=== PATIENT | male | born 1935 | race Caucasian/White ===

== ENCOUNTER 2021-05-29 14:52 | Inpatient (IN) ==
[2021-05-29 15:21] LABS: Basophils # 0.1 K/mcL (0.0-0.2); Basophils % 0.3 %; Eosinophils # 0.1 K/mcL (0.0-0.6); Eosinophils % 0.5 %; Hematocrit 51.4 % (37.5-50.1); Hemoglobin 16.9 g/dL (12.9-16.9); Immature Granulocytes % 0.5 % (0-4); Lymphocytes # 0.9 K/mcL (0.6-4.6); Mean Corpuscular HGB Conc 32.9 g/dL (31.6-35.5); Mean Corpuscular Hemoglobin 30.5 pg (28.0-33.3); Mean Corpuscular Volume 92.6 fL (83.0-100.0); Mean Platelet Volume 9.7 fL (9.4-12.4); Monocytes # 1.3 K/mcL (0.0-1.3); Monocytes % 8.6 %; Neutrophils # 12.9 K/mcL (1.6-8.9); Platelet Count 162 K/mcL (140-400); Red Blood Count 5.55 M/mcL (4.19-5.50); Segmented Neutrophils % 84.1 %; White Blood Count 15.3 K/mcL (4.3-11.1)
[2021-05-29 15:41] LABS: BUN/Creatinine Ratio 20 (6-26); Blood Urea Nitrogen 21 mg/dL (8-23); Calcium 8.6 mg/dL (8.6-10.3); Carbon Dioxide 24 mEq/L (23-29); Chloride 103 mEq/L (98-107); Glucose 133 mg/dL (70-105); Osmolality,Calculated 287 (280-300); Potassium 4.1 mEq/L (3.5-5.1); Sodium 136 mEq/L (136-145); eGFR For African Americans > 60 (> 60); eGFR For Non-African Americans > 60 (> 60)
[2021-05-29 15:46] LABS: Troponin I 0.23 ng/mL (< 0.04)
[2021-05-29 16:19] LABS: Adenovirus Not Detected (Not Detect); Coronavirus 229E Not Detected (Not Detect); Coronavirus HKU1 Not Detected (Not Detect); Coronavirus NL63 Not Detected (Not Detect); Coronavirus OC43 Not Detected (Not Detect)
[2021-05-29 16:21] LABS: Bordetella Pertussis Not Detected (Not Detect); Chlamydophila pneumoniae Not Detected (Not Detect); Human Metapneumovirus Not Detected (Not Detect); Human Rhinovirus/Enterovirus Not Detected (Not Detect); Influenza A Subtype 2009 H1 Not Detected (Not Detect); Influenza B Not Detected (Not Detect); Mycoplasma pneumoniae Not Detected (Not Detect); Parainfluenza Virus 1 Not Detected (Not Detect); Parainfluenza Virus 2 Not Detected (Not Detect); Parainfluenza Virus 3 Not Detected (Not Detect); Parainfluenza Virus 4 Not Detected (Not Detect); Respiratory Syncytial Virus Not Detected (Not Detect); SARS-CoV-2 DETECTED (Not Detect)
[2021-05-29] MEDS ORDERED: Ketorolac 30 MG/ML VIAL IVP STA (16:24)
[2021-05-29] MEDS ORDERED: Isovue-370 500 ML BOTTLE IVP ONE (16:24)
[2021-05-29] MEDS ORDERED: Isosorbide MONOnitrate (24 HR) 60 MG TAB.ER.24H PO SCH (17:15)
[2021-05-29] MEDS ORDERED: Metoprolol XL (24 HR) Succ 25 MG TAB.ER.24H PO SCH (17:15)
[2021-05-29] MEDS ORDERED: cefTRIAXone 1,000 MG in Water for inj. (sterile) 10 ML IVP ONE (18:22)
[2021-05-29] MEDS ORDERED: Azithromycin 250 MG TABLET PO ONE ×2 (18:22→18:35)
[2021-05-29] MEDS ORDERED: Aspirin 81 MG TAB.CHEW PO ONE (18:48)
[2021-05-29] MEDS ORDERED: Naloxone 0.4 MG/ML INJ IVP PRN (19:30)
[2021-05-29] MEDS: Isosorbide MONOnitrate (24 HR) 60 MG TAB.ER.24H PO SCH (19:55)
[2021-05-29] MEDS: Metoprolol XL (24 HR) Succ 25 MG TAB.ER.24H PO SCH (19:55)
[2021-05-29] MEDS ORDERED: Ipratropium 1 PUFF INHALER IH PRN (20:05)
[2021-05-29] MEDS ORDERED: Nitroglycerin 0.4 MG TAB.SUBL SL PRN (20:05)
[2021-05-29] MEDS ORDERED: *HR* Dextrose 50 % in Water (Syg) 50 ML SYRINGE IVP PRN (20:34)
[2021-05-29] MEDS ORDERED: D5% in Water 1,000 ML IVC PRN (20:34)
[2021-05-29] MEDS ORDERED: Dextrose Gel 15 GM/37.5 ML TUBE PO PRN ×2 (20:34)
[2021-05-29 22:09] LABS: Creatine Kinase 101 Units/L (30-223)
[2021-05-29] MEDS ORDERED: *HR* Heparin 5,000 UNIT/ML VIAL IVP PRN ×2 (23:28)
[2021-05-29] MEDS ORDERED: *HR* Heparin 5,000 UNIT/ML VIAL IVP ONE (23:28)
[2021-05-29] MEDS ORDERED: *HR* Metoprolol 5 MG/5 ML VIAL IVP ONE (23:49)
[2021-05-30] MEDS: Heparin 25,000UNIT/250ML 1/2NS 25,000 UNIT/250 ML IV.SOLN IVC SCH ×2 (00:40→23:18)
[2021-05-30 00:43] LABS: Hematocrit 48.5 % (37.5-50.1); Hemoglobin 15.7 g/dL (12.9-16.9); Mean Corpuscular HGB Conc 32.4 g/dL (31.6-35.5); Mean Corpuscular Hemoglobin 30.2 pg (28.0-33.3); Mean Corpuscular Volume 93.3 fL (83.0-100.0); Mean Platelet Volume 9.6 fL (9.4-12.4); Platelet Count 160 K/mcL (140-400); Red Cell Distribution Width 13.1 % (11.5-14.5); White Blood Count 13.7 K/mcL (4.3-11.1)
[2021-05-30 00:52] LABS: INR 1.2; Prothrombin Time 13.4 Seconds (9.4-12.1)
[2021-05-30 00:54] LABS: Heparin anti-factor XA UFH < 0.04 IU/mL (0.30-0.70)
[2021-05-30 01:05] LABS: Calcium 8.1 mg/dL (8.6-10.3); Potassium 3.9 mEq/L (3.5-5.1)
[2021-05-30] MEDS: Acetaminophen 325 MG TABLET PO PRN ×3 (03:01→20:52)
[2021-05-30] MEDS: Insulin LISPRO 300 UNITS/3 ML VIAL SUBQ SCH ×2 (08:26→15:20)
[2021-05-30] MEDS: Metoprolol XL (24 HR) Succ 25 MG TAB.ER.24H PO SCH ×2 (08:27→20:58)
[2021-05-30] MEDS: Isosorbide MONOnitrate (24 HR) 60 MG TAB.ER.24H PO SCH (08:27)
[2021-05-30] MEDS ORDERED: Azithromycin 500 MG in 0.9 % Sodium Chloride 250 ML IVPB SCH (09:00)
[2021-05-30] MEDS ORDERED: cefTRIAXone 1,000 MG in 0.9 % Sodium Chloride Mini Bag 100 ML IVPB SCH (09:00)
[2021-05-30] MEDS ORDERED: Metoprolol XL (24 HR) Succ 25 MG TAB.ER.24H PO SCH (09:00)
[2021-05-30] MEDS ORDERED: Isosorbide MONOnitrate (24 HR) 60 MG TAB.ER.24H PO SCH (09:00)
[2021-05-30] MEDS ORDERED: Perflutren Lipid Microsphere 1.3 ML in 0.9 % Sodium Chloride 8.7 ML IVP PRN (14:13)
[2021-05-30] MEDS ORDERED: predniSONE 5 MG TABLET PO PRN (17:24)
[2021-05-30] MEDS: *HR* LORazepam 0.5 MG TABLET PO SCH (20:52)
[2021-05-31 00:38] LABS: Basophils % 0.3 %; Eosinophils % 0.3 %; Hematocrit 46.2 % (37.5-50.1); Hemoglobin 14.9 g/dL (12.9-16.9); Immature Granulocytes % 0.4 % (0-4); Lymphocytes # 0.5 K/mcL (0.6-4.6); Lymphocytes % 4.4 %; Mean Corpuscular HGB Conc 32.3 g/dL (31.6-35.5); Mean Corpuscular Hemoglobin 29.9 pg (28.0-33.3); Mean Corpuscular Volume 92.6 fL (83.0-100.0); Mean Platelet Volume 9.5 fL (9.4-12.4); Monocytes # 0.4 K/mcL (0.0-1.3); Monocytes % 3.7 %; Neutrophils # 10.8 K/mcL (1.6-8.9); Platelet Count 169 K/mcL (140-400); Red Blood Count 4.99 M/mcL (4.19-5.50); Red Cell Distribution Width 13.1 % (11.5-14.5); Segmented Neutrophils % 90.9 %; White Blood Count 11.9 K/mcL (4.3-11.1)
[2021-05-31 00:53] LABS: BUN/Creatinine Ratio 23 (6-26); Blood Urea Nitrogen 25 mg/dL (8-23); Carbon Dioxide 26 mEq/L (23-29); Chloride 103 mEq/L (98-107); Glucose 125 mg/dL (70-105); Magnesium 1.7 mg/dL (1.6-2.6); Osmolality,Calculated 290 (280-300); Phosphorous 2.5 mg/dL (2.7-4.5); Sodium 137 mEq/L (136-145); eGFR For African Americans > 60 (> 60); eGFR For Non-African Americans > 60 (> 60)
[2021-05-31] MEDS: Tiotropium 10 INH DOSE IH SCH (08:36)
[2021-05-31] MEDS: Insulin LISPRO 300 UNITS/3 ML VIAL SUBQ SCH ×3 (08:40→18:00)
[2021-05-31] MEDS: levoFLOXacin 750 MG TABLET PO SCH (09:08)
[2021-05-31] MEDS: lisinopriL 5 MG TABLET PO SCH (09:08)
[2021-05-31] MEDS: Aspirin Enteric Coated 81 MG Tablet PO SCH (09:08)
[2021-05-31] MEDS: Isosorbide MONOnitrate (24 HR) 60 MG TAB.ER.24H PO SCH (09:08)
[2021-05-31] MEDS: Metoprolol XL (24 HR) Succ 25 MG TAB.ER.24H PO SCH ×2 (09:08→20:51)
[2021-05-31] MEDS ORDERED: Ondansetron 4 MG/2 ML VIAL IVP ONE ×2 (09:16→21:16)
[2021-05-31] MEDS: Acetaminophen 325 MG TABLET PO PRN ×2 (09:24→20:51)
[2021-05-31] MEDS: predniSONE 5 MG TABLET PO SCH (15:47)
[2021-05-31] MEDS: *HR* LORazepam 0.5 MG TABLET PO SCH (20:51)
[2021-05-31] MEDS: Ciprofloxacin/Dex *EAR* Susp 7.5 ML BOTTLE RIGHT EAR SCH (23:34)
[2021-06-01] MEDS: Heparin 25,000UNIT/250ML 1/2NS 25,000 UNIT/250 ML IV.SOLN IVC SCH (02:00)
[2021-06-01 06:31] LABS: Basophils % 0.3 %; Eosinophils % 0.2 %; Hematocrit 47.5 % (37.5-50.1); Hemoglobin 14.7 g/dL (12.9-16.9); Immature Granulocytes % 1.2 % (0-4); Lymphocytes # 0.8 K/mcL (0.6-4.6); Lymphocytes % 6.3 %; Mean Corpuscular HGB Conc 30.9 g/dL (31.6-35.5); Mean Corpuscular Hemoglobin 29.1 pg (28.0-33.3); Mean Corpuscular Volume 93.9 fL (83.0-100.0); Mean Platelet Volume 9.6 fL (9.4-12.4); Monocytes # 0.7 K/mcL (0.0-1.3); Neutrophils # 10.3 K/mcL (1.6-8.9); Platelet Count 194 K/mcL (140-400); Red Blood Count 5.06 M/mcL (4.19-5.50); Red Cell Distribution Width 13.2 % (11.5-14.5); White Blood Count 11.9 K/mcL (4.3-11.1)
[2021-06-01 06:48] LABS: BUN/Creatinine Ratio 24 (6-26); Blood Urea Nitrogen 30 mg/dL (8-23); Calcium 8.1 mg/dL (8.6-10.3); Carbon Dioxide 30 mEq/L (23-29); Chloride 101 mEq/L (98-107); Glucose 139 mg/dL (70-105); Osmolality,Calculated 290 (280-300); Phosphorous 2.9 mg/dL (2.7-4.5); Potassium 4.7 mEq/L (3.5-5.1); Sodium 136 mEq/L (136-145); eGFR For African Americans > 60 (> 60); eGFR For Non-African Americans 56 (> 60)
[2021-06-01] MEDS: Tiotropium 10 INH DOSE IH SCH (08:18)
[2021-06-01] MEDS: Aspirin Enteric Coated 81 MG Tablet PO SCH (08:27)
[2021-06-01] MEDS: Isosorbide MONOnitrate (24 HR) 60 MG TAB.ER.24H PO SCH (08:27)
[2021-06-01] MEDS: Metoprolol XL (24 HR) Succ 25 MG TAB.ER.24H PO SCH ×2 (08:27→22:38)
[2021-06-01] MEDS: lisinopriL 5 MG TABLET PO SCH (08:27)
[2021-06-01] MEDS: levoFLOXacin 750 MG TABLET PO SCH (08:27)
[2021-06-01] MEDS: predniSONE 5 MG TABLET PO SCH (08:27)
[2021-06-01] MEDS: Insulin LISPRO 300 UNITS/3 ML VIAL SUBQ SCH ×4 (08:30→22:39)
[2021-06-01] MEDS: Ciprofloxacin/Dex *EAR* Susp 7.5 ML BOTTLE RIGHT EAR SCH ×2 (08:31→22:38)
[2021-06-01] MEDS: Acetaminophen 325 MG TABLET PO PRN (22:37)
[2021-06-01] MEDS: *HR* LORazepam 0.5 MG TABLET PO SCH (22:38)
[2021-06-02 06:56] LABS: Hematocrit 46.9 % (37.5-50.1); Hemoglobin 14.8 g/dL (12.9-16.9); Mean Corpuscular HGB Conc 31.6 g/dL (31.6-35.5); Mean Corpuscular Hemoglobin 29.4 pg (28.0-33.3); Mean Corpuscular Volume 93.2 fL (83.0-100.0); Mean Platelet Volume 9.1 fL (9.4-12.4); Platelet Count 217 K/mcL (140-400); Red Blood Count 5.03 M/mcL (4.19-5.50); Red Cell Distribution Width 12.9 % (11.5-14.5); White Blood Count 10.9 K/mcL (4.3-11.1)
[2021-06-02 07:09] LABS: BUN/Creatinine Ratio 25 (6-26); Blood Urea Nitrogen 25 mg/dL (8-23); Calcium 8.2 mg/dL (8.6-10.3); Carbon Dioxide 31 mEq/L (23-29); Chloride 102 mEq/L (98-107); Glucose 184 mg/dL (70-105); Osmolality,Calculated 293 (280-300); Potassium 4.8 mEq/L (3.5-5.1); Sodium 137 mEq/L (136-145); eGFR For African Americans > 60 (> 60); eGFR For Non-African Americans > 60 (> 60)
[2021-06-02] MEDS: Aspirin Enteric Coated 81 MG Tablet PO SCH (08:18)
[2021-06-02] MEDS: lisinopriL 5 MG TABLET PO SCH (08:18)
[2021-06-02] MEDS: Isosorbide MONOnitrate (24 HR) 60 MG TAB.ER.24H PO SCH (08:19)
[2021-06-02] MEDS: Metoprolol XL (24 HR) Succ 25 MG TAB.ER.24H PO SCH ×2 (08:19→22:22)
[2021-06-02] MEDS: Doxycycline 100 MG CAPSULE PO SCH ×2 (08:19→22:22)
[2021-06-02] MEDS: levoFLOXacin 750 MG TABLET PO SCH (08:19)
[2021-06-02] MEDS: Ciprofloxacin/Dex *EAR* Susp 7.5 ML BOTTLE RIGHT EAR SCH ×2 (08:19→22:22)
[2021-06-02] MEDS: Insulin LISPRO 300 UNITS/3 ML VIAL SUBQ SCH ×3 (08:20→17:43)
[2021-06-02] MEDS: Tiotropium 10 INH DOSE IH SCH (11:50)
[2021-06-02] MEDS: *HR* LORazepam 0.5 MG TABLET PO SCH (22:22)
[2021-06-03 06:58] LABS: Basophils % 0.1 %; Hematocrit 46.9 % (37.5-50.1); Hemoglobin 15.2 g/dL (12.9-16.9); Immature Granulocytes % 0.6 % (0-4); Lymphocytes # 0.4 K/mcL (0.6-4.6); Lymphocytes % 2.6 %; Mean Corpuscular HGB Conc 32.4 g/dL (31.6-35.5); Mean Corpuscular Hemoglobin 30.1 pg (28.0-33.3); Mean Corpuscular Volume 92.9 fL (83.0-100.0); Mean Platelet Volume 9.2 fL (9.4-12.4); Monocytes # 1.1 K/mcL (0.0-1.3); Neutrophils # 14.4 K/mcL (1.6-8.9); Platelet Count 269 K/mcL (140-400); Red Blood Count 5.05 M/mcL (4.19-5.50); Red Cell Distribution Width 12.9 % (11.5-14.5); Segmented Neutrophils % 89.7 %; White Blood Count 16.1 K/mcL (4.3-11.1)
[2021-06-03 07:18] LABS: BUN/Creatinine Ratio 26 (6-26); Blood Urea Nitrogen 28 mg/dL (8-23); Calcium 8.3 mg/dL (8.6-10.3); Carbon Dioxide 32 mEq/L (23-29); Chloride 102 mEq/L (98-107); Glucose 170 mg/dL (70-105); Osmolality,Calculated 299 (280-300); Potassium 4.6 mEq/L (3.5-5.1); Sodium 140 mEq/L (136-145); eGFR For African Americans > 60 (> 60); eGFR For Non-African Americans > 60 (> 60)
[2021-06-03] MEDS: Tiotropium 10 INH DOSE IH SCH (07:41)
[2021-06-03] MEDS: Insulin LISPRO 300 UNITS/3 ML VIAL SUBQ SCH ×3 (08:58→17:23)
[2021-06-03] MEDS: lisinopriL 5 MG TABLET PO SCH (08:58)
[2021-06-03] MEDS: Aspirin Enteric Coated 81 MG Tablet PO SCH (08:59)
[2021-06-03] MEDS: Doxycycline 100 MG CAPSULE PO SCH (08:59)
[2021-06-03] MEDS: levoFLOXacin 750 MG TABLET PO SCH (08:59)
[2021-06-03] MEDS: Isosorbide MONOnitrate (24 HR) 60 MG TAB.ER.24H PO SCH (08:59)
[2021-06-03] MEDS: Metoprolol XL (24 HR) Succ 25 MG TAB.ER.24H PO SCH ×2 (08:59→20:39)
[2021-06-03] MEDS: Ciprofloxacin/Dex *EAR* Susp 7.5 ML BOTTLE RIGHT EAR SCH ×2 (09:05→23:57)
[2021-06-03] MEDS ORDERED: *HR* Metoprolol 5 MG/5 ML VIAL IVP ONE (09:40)
[2021-06-03] MEDS: *HR* LORazepam 0.5 MG TABLET PO SCH (20:39)
[2021-06-04] MEDS: Ciprofloxacin/Dex *EAR* Susp 7.5 ML BOTTLE RIGHT EAR SCH ×2 (03:15→22:08)
[2021-06-04] MEDS: *HR* Enoxaparin 40 MG/0.4 ML SYRINGE SQ SCH (06:02)
[2021-06-04] MEDS: Tiotropium 10 INH DOSE IH SCH (08:30)
[2021-06-04] MEDS: Insulin LISPRO 300 UNITS/3 ML VIAL SUBQ SCH ×3 (10:14→17:19)
[2021-06-04] MEDS: levoFLOXacin 750 MG TABLET PO SCH (10:20)
[2021-06-04] MEDS: Aspirin Enteric Coated 81 MG Tablet PO SCH (10:20)
[2021-06-04] MEDS: Isosorbide MONOnitrate (24 HR) 60 MG TAB.ER.24H PO SCH (10:21)
[2021-06-04] MEDS: lisinopriL 5 MG TABLET PO SCH (10:21)
[2021-06-04] MEDS: Metoprolol XL (24 HR) Succ 25 MG TAB.ER.24H PO SCH ×2 (10:21→22:08)
[2021-06-04] MEDS: *HR* LORazepam 0.5 MG TABLET PO SCH (22:08)
[2021-06-05] MEDS: *HR* Enoxaparin 40 MG/0.4 ML SYRINGE SQ SCH (06:19)
[2021-06-05] MEDS: Tiotropium 10 INH DOSE IH SCH (07:51)
[2021-06-05] MEDS: Ciprofloxacin/Dex *EAR* Susp 7.5 ML BOTTLE RIGHT EAR SCH ×2 (08:18→21:17)
[2021-06-05] MEDS: Metoprolol XL (24 HR) Succ 25 MG TAB.ER.24H PO SCH ×2 (08:19→21:13)
[2021-06-05] MEDS: Isosorbide MONOnitrate (24 HR) 60 MG TAB.ER.24H PO SCH (08:19)
[2021-06-05] MEDS: lisinopriL 5 MG TABLET PO SCH (08:19)
[2021-06-05] MEDS: Insulin LISPRO 300 UNITS/3 ML VIAL SUBQ SCH ×3 (08:19→16:18)
[2021-06-05] MEDS: Aspirin Enteric Coated 81 MG Tablet PO SCH (08:19)
[2021-06-05] MEDS: *HR* LORazepam 0.5 MG TABLET PO SCH (21:13)
[2021-06-06] MEDS: *HR* Enoxaparin 40 MG/0.4 ML SYRINGE SQ SCH (04:56)
[2021-06-06 07:39] LABS: Basophils # 0.1 K/mcL (0.0-0.2); Basophils % 0.3 %; Hematocrit 48.3 % (37.5-50.1); Hemoglobin 15.5 g/dL (12.9-16.9); Immature Granulocytes % 1.7 % (0-4); Lymphocytes # 0.4 K/mcL (0.6-4.6); Lymphocytes % 1.9 %; Mean Corpuscular HGB Conc 32.1 g/dL (31.6-35.5); Mean Corpuscular Hemoglobin 29.3 pg (28.0-33.3); Mean Corpuscular Volume 91.3 fL (83.0-100.0); Mean Platelet Volume 9.2 fL (9.4-12.4); Monocytes # 0.6 K/mcL (0.0-1.3); Monocytes % 2.6 %; Neutrophils # 21.7 K/mcL (1.6-8.9); Platelet Count 327 K/mcL (140-400); Red Blood Count 5.29 M/mcL (4.19-5.50); Red Cell Distribution Width 13.1 % (11.5-14.5); Segmented Neutrophils % 93.5 %; White Blood Count 23.2 K/mcL (4.3-11.1)
[2021-06-06] MEDS: Tiotropium 10 INH DOSE IH SCH (07:43)
[2021-06-06] MEDS: Isosorbide MONOnitrate (24 HR) 60 MG TAB.ER.24H PO SCH (07:50)
[2021-06-06] MEDS: Aspirin Enteric Coated 81 MG Tablet PO SCH (07:50)
[2021-06-06] MEDS: lisinopriL 5 MG TABLET PO SCH (07:51)
[2021-06-06] MEDS: Metoprolol XL (24 HR) Succ 25 MG TAB.ER.24H PO SCH ×2 (07:51→21:05)
[2021-06-06 07:57] LABS: BUN/Creatinine Ratio 26 (6-26); Blood Urea Nitrogen 27 mg/dL (8-23); Calcium 8.7 mg/dL (8.6-10.3); Carbon Dioxide 29 mEq/L (23-29); Chloride 96 mEq/L (98-107); Glucose 175 mg/dL (70-105); Osmolality,Calculated 287 (280-300); Potassium 4.3 mEq/L (3.5-5.1); Sodium 134 mEq/L (136-145); eGFR For African Americans > 60 (> 60); eGFR For Non-African Americans > 60 (> 60)
[2021-06-06] MEDS: Insulin LISPRO 300 UNITS/3 ML VIAL SUBQ SCH ×3 (07:57→16:26)
[2021-06-06] MEDS: Ciprofloxacin/Dex *EAR* Susp 7.5 ML BOTTLE RIGHT EAR SCH ×2 (07:59→21:05)
[2021-06-06 08:23] LABS: Platelet Estimate Normal (Normal); Toxic Granulation Present (Not Present)
[2021-06-06] MEDS: *HR* LORazepam 0.5 MG TABLET PO SCH (21:05)
[2021-06-07 04:46] LABS: Basophils # 0.1 K/mcL (0.0-0.2); Basophils % 0.4 %; Hematocrit 47.7 % (37.5-50.1); Hemoglobin 15.7 g/dL (12.9-16.9); Immature Granulocytes % 1.2 % (0-4); Lymphocytes # 0.5 K/mcL (0.6-4.6); Lymphocytes % 2.1 %; Mean Corpuscular HGB Conc 32.9 g/dL (31.6-35.5); Mean Platelet Volume 9.1 fL (9.4-12.4); Monocytes # 0.7 K/mcL (0.0-1.3); Monocytes % 3.2 %; Neutrophils # 20.3 K/mcL (1.6-8.9); Platelet Count 361 K/mcL (140-400); Red Blood Count 5.24 M/mcL (4.19-5.50); Red Cell Distribution Width 12.9 % (11.5-14.5); Segmented Neutrophils % 93.1 %; White Blood Count 21.8 K/mcL (4.3-11.1)
[2021-06-07 05:02] LABS: BUN/Creatinine Ratio 29 (6-26); Blood Urea Nitrogen 30 mg/dL (8-23); Calcium 8.5 mg/dL (8.6-10.3); Carbon Dioxide 31 mEq/L (23-29); Chloride 97 mEq/L (98-107); Glucose 206 mg/dL (70-105); Osmolality,Calculated 290 (280-300); Potassium 4.7 mEq/L (3.5-5.1); Sodium 134 mEq/L (136-145); eGFR For African Americans > 60 (> 60); eGFR For Non-African Americans > 60 (> 60)
[2021-06-07] MEDS: *HR* Enoxaparin 40 MG/0.4 ML SYRINGE SQ SCH (06:15)
[2021-06-07] MEDS: Isosorbide MONOnitrate (24 HR) 60 MG TAB.ER.24H PO SCH (08:25)
[2021-06-07] MEDS: Metoprolol XL (24 HR) Succ 25 MG TAB.ER.24H PO SCH ×2 (08:25→21:01)
[2021-06-07] MEDS: Aspirin Enteric Coated 81 MG Tablet PO SCH (08:25)
[2021-06-07] MEDS: Ciprofloxacin/Dex *EAR* Susp 7.5 ML BOTTLE RIGHT EAR SCH (08:26)
[2021-06-07] MEDS: lisinopriL 5 MG TABLET PO SCH (08:26)
[2021-06-07] MEDS: Insulin LISPRO 300 UNITS/3 ML VIAL SUBQ SCH ×5 (08:27→21:08)
[2021-06-07] MEDS: Tiotropium 10 INH DOSE IH SCH (08:33)
[2021-06-07] MEDS ORDERED: Isovue-370 500 ML BOTTLE IVP ONE (11:47)
[2021-06-07] MEDS ORDERED: 0.9 % Sodium Chloride 500 ML IVC SCH (12:00)
[2021-06-07] MEDS ORDERED: Dexamethasone Sodium Phos/PF 10 MG/ML VIAL IVP ONE (16:23)
[2021-06-07] MEDS: *HR* LORazepam 0.5 MG TABLET PO SCH (21:01)
[2021-06-08] MEDS: *HR* Enoxaparin 40 MG/0.4 ML SYRINGE SQ SCH (05:32)
[2021-06-08 05:43] LABS: Basophils % 0.2 %; Hematocrit 48.7 % (37.5-50.1); Hemoglobin 15.4 g/dL (12.9-16.9); Immature Granulocytes % 1.1 % (0-4); Lymphocytes # 0.3 K/mcL (0.6-4.6); Lymphocytes % 1.5 %; Mean Corpuscular HGB Conc 31.6 g/dL (31.6-35.5); Mean Corpuscular Hemoglobin 28.8 pg (28.0-33.3); Mean Corpuscular Volume 91.2 fL (83.0-100.0); Mean Platelet Volume 9.1 fL (9.4-12.4); Monocytes # 0.6 K/mcL (0.0-1.3); Monocytes % 3.2 %; Neutrophils # 18.4 K/mcL (1.6-8.9); Platelet Count 403 K/mcL (140-400); Red Blood Count 5.34 M/mcL (4.19-5.50); Red Cell Distribution Width 12.8 % (11.5-14.5); White Blood Count 19.6 K/mcL (4.3-11.1)
[2021-06-08 05:53] LABS: BUN/Creatinine Ratio 37 (6-26); Blood Urea Nitrogen 36 mg/dL (8-23); Calcium 8.4 mg/dL (8.6-10.3); Carbon Dioxide 29 mEq/L (23-29); Chloride 97 mEq/L (98-107); Glucose 246 mg/dL (70-105); Osmolality,Calculated 293 (280-300); Sodium 133 mEq/L (136-145); eGFR For African Americans > 60 (> 60); eGFR For Non-African Americans > 60 (> 60)
[2021-06-08] MEDS: Tiotropium 10 INH DOSE IH SCH (07:40)
[2021-06-08] MEDS: Dexamethasone Sodium Phos/PF 10 MG/ML VIAL IVP SCH (08:53)
[2021-06-08] MEDS: Metoprolol XL (24 HR) Succ 25 MG TAB.ER.24H PO SCH ×2 (08:54→20:39)
[2021-06-08] MEDS: Aspirin Enteric Coated 81 MG Tablet PO SCH (08:54)
[2021-06-08] MEDS: Isosorbide MONOnitrate (24 HR) 60 MG TAB.ER.24H PO SCH (08:54)
[2021-06-08] MEDS: lisinopriL 5 MG TABLET PO SCH (08:54)
[2021-06-08] MEDS: Insulin LISPRO 300 UNITS/3 ML VIAL SUBQ SCH ×4 (08:55→20:40)
[2021-06-08] MEDS: Sennosides/Docusate Sodium TABLET PO SCH (20:39)
[2021-06-08] MEDS: *HR* LORazepam 0.5 MG TABLET PO SCH (20:40)
[2021-06-09] MEDS: *HR* Enoxaparin 40 MG/0.4 ML SYRINGE SQ SCH (05:35)
[2021-06-09] MEDS: Tiotropium 10 INH DOSE IH SCH (08:20)
[2021-06-09] MEDS: Sennosides/Docusate Sodium TABLET PO SCH ×2 (09:19→20:34)
[2021-06-09] MEDS: Aspirin Enteric Coated 81 MG Tablet PO SCH (09:19)
[2021-06-09] MEDS: Metoprolol XL (24 HR) Succ 25 MG TAB.ER.24H PO SCH ×2 (09:19→20:34)
[2021-06-09] MEDS: Insulin LISPRO 300 UNITS/3 ML VIAL SUBQ SCH ×4 (09:19→20:35)
[2021-06-09] MEDS: Isosorbide MONOnitrate (24 HR) 60 MG TAB.ER.24H PO SCH (09:19)
[2021-06-09] MEDS: lisinopriL 5 MG TABLET PO SCH (09:19)
[2021-06-09] MEDS: Dexamethasone Sodium Phos/PF 10 MG/ML VIAL IVP SCH (09:20)
[2021-06-09] MEDS: *HR* LORazepam 0.5 MG TABLET PO SCH (20:34)
[2021-06-10] MEDS: *HR* Enoxaparin 40 MG/0.4 ML SYRINGE SQ SCH (04:52)
[2021-06-10] MEDS: Dexamethasone Sodium Phos/PF 10 MG/ML VIAL IVP SCH (07:59)
[2021-06-10] MEDS: lisinopriL 5 MG TABLET PO SCH (08:00)
[2021-06-10] MEDS: Aspirin Enteric Coated 81 MG Tablet PO SCH (08:00)
[2021-06-10] MEDS: Insulin LISPRO 300 UNITS/3 ML VIAL SUBQ SCH ×4 (08:00→21:25)
[2021-06-10] MEDS: Isosorbide MONOnitrate (24 HR) 60 MG TAB.ER.24H PO SCH (08:01)
[2021-06-10] MEDS: Metoprolol XL (24 HR) Succ 25 MG TAB.ER.24H PO SCH ×2 (08:01→21:25)
[2021-06-10] MEDS: Sennosides/Docusate Sodium TABLET PO SCH ×2 (08:01→21:25)
[2021-06-10] MEDS: Tiotropium 10 INH DOSE IH SCH (08:14)
[2021-06-10] MEDS ORDERED: Preparation H Ointment 57 GM TUBE RC PRN (18:45)
[2021-06-10] MEDS: *HR* LORazepam 0.5 MG TABLET PO SCH (21:24)
[2021-06-10] MEDS: Insulin DETEMIR 100 UNIT/ML X5UNITS SUBQ SCH (21:25)
[2021-06-11 01:53] LABS: Basophils # 0.1 K/mcL (0.0-0.2); Basophils % 0.2 %; Hematocrit 50.6 % (37.5-50.1); Hemoglobin 16.6 g/dL (12.9-16.9); Immature Granulocytes % 1.1 % (0-4); Lymphocytes # 0.4 K/mcL (0.6-4.6); Lymphocytes % 1.7 %; Mean Corpuscular HGB Conc 32.8 g/dL (31.6-35.5); Mean Corpuscular Hemoglobin 29.2 pg (28.0-33.3); Mean Corpuscular Volume 89.1 fL (83.0-100.0); Monocytes # 1.2 K/mcL (0.0-1.3); Monocytes % 5.7 %; Neutrophils # 19.2 K/mcL (1.6-8.9); Platelet Count 460 K/mcL (140-400); Red Blood Count 5.68 M/mcL (4.19-5.50); Red Cell Distribution Width 12.6 % (11.5-14.5); Segmented Neutrophils % 91.3 %
[2021-06-11 02:07] LABS: BUN/Creatinine Ratio 44 (6-26); Blood Urea Nitrogen 42 mg/dL (8-23); Calcium 8.3 mg/dL (8.6-10.3); Carbon Dioxide 25 mEq/L (23-29); Chloride 96 mEq/L (98-107); Glucose 230 mg/dL (70-105); Osmolality,Calculated 290 (280-300); Potassium 5.3 mEq/L (3.5-5.1); Sodium 131 mEq/L (136-145); eGFR For African Americans > 60 (> 60); eGFR For Non-African Americans > 60 (> 60)
[2021-06-11] MEDS: *HR* Enoxaparin 40 MG/0.4 ML SYRINGE SQ SCH (06:19)
[2021-06-11] MEDS: Tiotropium 10 INH DOSE IH SCH (07:40)
[2021-06-11] MEDS: lisinopriL 5 MG TABLET PO SCH (07:55)
[2021-06-11] MEDS: Metoprolol XL (24 HR) Succ 25 MG TAB.ER.24H PO SCH ×2 (07:55→20:10)
[2021-06-11] MEDS: Sennosides/Docusate Sodium TABLET PO SCH ×2 (07:55→20:10)
[2021-06-11] MEDS: Dexamethasone Sodium Phos/PF 10 MG/ML VIAL IVP SCH (07:55)
[2021-06-11] MEDS: Isosorbide MONOnitrate (24 HR) 60 MG TAB.ER.24H PO SCH (07:55)
[2021-06-11] MEDS: Aspirin Enteric Coated 81 MG Tablet PO SCH (07:55)
[2021-06-11] MEDS: Insulin LISPRO 300 UNITS/3 ML VIAL SUBQ SCH ×4 (07:56→23:29)
[2021-06-11] MEDS ORDERED: Furosemide 20 MG/2 ML VIAL IVP ONE (13:07)
[2021-06-11] MEDS ORDERED: Chloraseptic Spray 177 ML BOTTLE MM PRN (17:34)
[2021-06-11] MEDS: *HR* LORazepam 0.5 MG TABLET PO SCH (20:10)
[2021-06-11] MEDS: Insulin DETEMIR 100 UNIT/ML X5UNITS SUBQ SCH (23:29)
[2021-06-12] MEDS: *HR* Enoxaparin 40 MG/0.4 ML SYRINGE SQ SCH (05:15)
[2021-06-12 05:44] LABS: Basophils % 0.2 %; Hemoglobin 17.6 g/dL (12.9-16.9); Immature Granulocytes % 1.4 % (0-4); Lymphocytes # 0.5 K/mcL (0.6-4.6); Lymphocytes % 2.3 %; Mean Corpuscular HGB Conc 31.9 g/dL (31.6-35.5); Mean Corpuscular Hemoglobin 28.7 pg (28.0-33.3); Mean Corpuscular Volume 89.7 fL (83.0-100.0); Mean Platelet Volume 9.2 fL (9.4-12.4); Monocytes # 1.1 K/mcL (0.0-1.3); Monocytes % 5.6 %; Neutrophils # 17.9 K/mcL (1.6-8.9); Platelet Count 496 K/mcL (140-400); Red Blood Count 6.14 M/mcL (4.19-5.50); Red Cell Distribution Width 12.7 % (11.5-14.5); Segmented Neutrophils % 90.5 %; White Blood Count 19.7 K/mcL (4.3-11.1)
[2021-06-12 05:45] LABS: Hematocrit 55.1 % (37.5-50.1)
[2021-06-12 06:01] LABS: BUN/Creatinine Ratio 42 (6-26); Blood Urea Nitrogen 51 mg/dL (8-23); Calcium 8.5 mg/dL (8.6-10.3); Carbon Dioxide 29 mEq/L (23-29); Chloride 95 mEq/L (98-107); Glucose 191 mg/dL (70-105); Osmolality,Calculated 297 (280-300); Potassium 4.9 mEq/L (3.5-5.1); Sodium 134 mEq/L (136-145); eGFR For African Americans > 60 (> 60); eGFR For Non-African Americans 57 (> 60)
[2021-06-12] MEDS: Insulin LISPRO 300 UNITS/3 ML VIAL SUBQ SCH ×4 (08:25→21:38)
[2021-06-12] MEDS: Isosorbide MONOnitrate (24 HR) 60 MG TAB.ER.24H PO SCH (08:27)
[2021-06-12] MEDS: Metoprolol XL (24 HR) Succ 25 MG TAB.ER.24H PO SCH (08:27)
[2021-06-12] MEDS: Sennosides/Docusate Sodium TABLET PO SCH ×2 (08:27→21:29)
[2021-06-12] MEDS: Dexamethasone Sodium Phos/PF 10 MG/ML VIAL IVP SCH (08:28)
[2021-06-12] MEDS: lisinopriL 5 MG TABLET PO SCH (08:28)
[2021-06-12] MEDS: Aspirin Enteric Coated 81 MG Tablet PO SCH (08:28)
[2021-06-12] MEDS ORDERED: *HR* Metoprolol 5 MG/5 ML VIAL IVP PRN (08:53)
[2021-06-12] MEDS: Tiotropium 10 INH DOSE IH SCH (11:07)
[2021-06-12] MEDS ORDERED: Amiodarone Premix 150 MG/100 ML BAG IVPB ONE (14:04)
[2021-06-12] MEDS ORDERED: Amiodarone Premix 360 MG/200 ML BAG IVC ONE (14:13)
[2021-06-12] MEDS: Furosemide 40 MG/4 ML VIAL IVP SCH (18:02)
[2021-06-12] MEDS: *HR* Enoxaparin 80 MG/0.8 ML SYRINGE SQ SCH (18:03)
[2021-06-12] MEDS: *HR* LORazepam 0.5 MG TABLET PO SCH (21:26)
[2021-06-12] MEDS: Amiodarone Premix 360 MG/200 ML BAG IVC SCH (21:29)
[2021-06-12] MEDS: Insulin DETEMIR 100 UNIT/ML X5UNITS SUBQ SCH (21:41)
[2021-06-13] MEDS: *HR* Enoxaparin 80 MG/0.8 ML SYRINGE SQ SCH (05:44)
[2021-06-13 06:30] LABS: Basophils % 0.2 %; Eosinophils % 0.1 %; Hemoglobin 18.4 g/dL (12.9-16.9); Immature Granulocytes % 1.1 % (0-4); Lymphocytes # 0.5 K/mcL (0.6-4.6); Lymphocytes % 2.4 %; Mean Corpuscular HGB Conc 33.1 g/dL (31.6-35.5); Mean Corpuscular Hemoglobin 29.5 pg (28.0-33.3); Mean Corpuscular Volume 89.1 fL (83.0-100.0); Mean Platelet Volume 9.2 fL (9.4-12.4); Monocytes % 4.8 %; Neutrophils # 19.3 K/mcL (1.6-8.9); Platelet Count 528 K/mcL (140-400); Red Blood Count 6.24 M/mcL (4.19-5.50); Red Cell Distribution Width 12.8 % (11.5-14.5); Segmented Neutrophils % 91.4 %; White Blood Count 21.1 K/mcL (4.3-11.1)
[2021-06-13 06:32] LABS: Hematocrit 55.6 % (37.5-50.1)
[2021-06-13 06:43] LABS: BUN/Creatinine Ratio 47 (6-26); Blood Urea Nitrogen 62 mg/dL (8-23); Calcium 8.3 mg/dL (8.6-10.3); Carbon Dioxide 27 mEq/L (23-29); Chloride 96 mEq/L (98-107); Glucose 147 mg/dL (70-105); Osmolality,Calculated 294 (280-300); Potassium 4.9 mEq/L (3.5-5.1); Sodium 132 mEq/L (136-145); eGFR For African Americans > 60 (> 60); eGFR For Non-African Americans 51 (> 60)
[2021-06-13] MEDS: Amiodarone Premix 360 MG/200 ML BAG IVC SCH ×2 (07:53→19:51)
[2021-06-13] MEDS: Aspirin Enteric Coated 81 MG Tablet PO SCH (07:54)
[2021-06-13] MEDS: Furosemide 40 MG/4 ML VIAL IVP SCH (07:54)
[2021-06-13] MEDS: lisinopriL 5 MG TABLET PO SCH (07:54)
[2021-06-13] MEDS: Sennosides/Docusate Sodium TABLET PO SCH ×2 (07:54→20:06)
[2021-06-13] MEDS: Insulin LISPRO 300 UNITS/3 ML VIAL SUBQ SCH ×4 (07:54→20:07)
[2021-06-13] MEDS: Dexamethasone Sodium Phos/PF 10 MG/ML VIAL IVP SCH (07:54)
[2021-06-13] MEDS ORDERED: Isosorbide MONOnitrate (24 HR) 30 MG TAB.ER.24H PO SCH (09:00)
[2021-06-13] MEDS: Tiotropium 10 INH DOSE IH SCH (10:13)
[2021-06-13] MEDS ORDERED: Amiodarone Premix 150 MG/100 ML BAG IVPB ONE (12:08)
[2021-06-13] MEDS: *HR* Amiodarone 200 MG TABLET PO SCH ×2 (13:47→20:06)
[2021-06-13] MEDS ORDERED: *HR* LORazepam 0.5 MG TABLET PO PRN (17:07)
[2021-06-13] MEDS: *HR* Enoxaparin 100 MG/ML SYRINGE SQ SCH (17:23)
[2021-06-13] MEDS: Metoprolol 100 MG TABLET PO SCH (20:06)
[2021-06-13] MEDS: Insulin DETEMIR 100 UNIT/ML X5UNITS SUBQ SCH (20:07)
[2021-06-14] MEDS: *HR* Enoxaparin 100 MG/ML SYRINGE SQ SCH (05:37)
[2021-06-14 05:57] LABS: ABG Base Excess 2 mEq/L (-2 to 3); ABG HCO3 23 mEq/L (21-27); ABG Oxygen Saturation 91 % (95-98); ABG PCO2 29 mmHg (35-45); ABG PH 7.52 pH Units (7.32-7.45); ABG PO2 54 mmHg (85-104); ABG TCO2 24 mEq/L (20-26)
[2021-06-14 06:15] LABS: Basophils # 0.1 K/mcL (0.0-0.2); Basophils % 0.2 %; Hematocrit 55.3 % (37.5-50.1); Hemoglobin 18.1 g/dL (12.9-16.9); Lymphocytes # 0.5 K/mcL (0.6-4.6); Lymphocytes % 2.1 %; Mean Corpuscular HGB Conc 32.7 g/dL (31.6-35.5); Mean Corpuscular Volume 88.6 fL (83.0-100.0); Mean Platelet Volume 9.3 fL (9.4-12.4); Monocytes # 1.1 K/mcL (0.0-1.3); Monocytes % 4.6 %; Neutrophils # 22.8 K/mcL (1.6-8.9); Platelet Count 529 K/mcL (140-400); Red Blood Count 6.24 M/mcL (4.19-5.50); Red Cell Distribution Width 12.9 % (11.5-14.5); Segmented Neutrophils % 92.1 %; White Blood Count 24.8 K/mcL (4.3-11.1)
[2021-06-14 06:28] LABS: Albumin 3.1 g/dL (3.5-5.7); Bilirubin,Total 0.8 mg/dL (0.3-1.0); Calcium 8.2 mg/dL (8.6-10.3); Globulin 3.2 g/dL (2.4-3.5); Potassium 4.8 mEq/L (3.5-5.1); Total Protein 6.3 g/dL (6.4-8.9)
[2021-06-14 06:49] LABS: INR 1.3; Prothrombin Time 14.4 Seconds (9.4-12.1)
[2021-06-14 06:53] LABS: Activated Partial Thrombo Time 51.1 Seconds (26.0-36.0)
[2021-06-14 07:18] LABS: Platelet Clumps Few (Not Present); Platelet Estimate Increased (Normal)
[2021-06-14] MEDS: *HR* Amiodarone 200 MG TABLET PO SCH ×2 (07:51→20:43)
[2021-06-14] MEDS: Sennosides/Docusate Sodium TABLET PO SCH ×2 (07:51→20:43)
[2021-06-14] MEDS: Metoprolol 100 MG TABLET PO SCH ×2 (07:52→20:43)
[2021-06-14] MEDS: Aspirin Enteric Coated 81 MG Tablet PO SCH (07:52)
[2021-06-14] MEDS: Dexamethasone Sodium Phos/PF 10 MG/ML VIAL IVP SCH (07:52)
[2021-06-14] MEDS: Insulin LISPRO 300 UNITS/3 ML VIAL SUBQ SCH ×4 (07:54→20:45)
[2021-06-14] MEDS: Amiodarone Premix 360 MG/200 ML BAG IVC SCH (08:09)
[2021-06-14] MEDS ORDERED: Heparin 25,000UNIT/250ML 1/2NS 25,000 UNIT/250 ML IV.SOLN IVC SCH (08:15)
[2021-06-14] MEDS ORDERED: Heparin 25,000 UNIT/250 ML 25,000 UNIT/250 ML IV.SOLN IVC SCH (08:30)
[2021-06-14] MEDS: 0.9 % Sodium Chloride 1,000 ML IVC SCH ×2 (08:37→23:00)
[2021-06-14] MEDS: Tiotropium 10 INH DOSE IH SCH (11:43)
[2021-06-14] MEDS ORDERED: *HR* Heparin 5,000 UNIT/ML VIAL IVP PRN ×2 (12:56)
[2021-06-14] MEDS: Heparin 25,000 UNIT/250 ML 25,000 UNIT/250 ML IV.SOLN IVC SCH (14:03)
[2021-06-14] MEDS: Pantoprazole 40 MG VIAL IVP SCH (17:43)
[2021-06-14 20:33] LABS: Hematocrit 52.4 % (37.5-50.1); Mean Corpuscular HGB Conc 32.4 g/dL (31.6-35.5); Mean Corpuscular Hemoglobin 29.3 pg (28.0-33.3); Mean Corpuscular Volume 90.2 fL (83.0-100.0); Mean Platelet Volume 9.4 fL (9.4-12.4); Platelet Count 454 K/mcL (140-400); Red Blood Count 5.81 M/mcL (4.19-5.50); Red Cell Distribution Width 12.9 % (11.5-14.5)
[2021-06-14] MEDS: Insulin DETEMIR 100 UNIT/ML X5UNITS SUBQ SCH (20:44)
[2021-06-14 23:18] LABS: INR 1.3; Prothrombin Time 14.3 Seconds (9.4-12.1)
[2021-06-15 00:46] LABS: Hematocrit 50.6 % (37.5-50.1); Hemoglobin 16.6 g/dL (12.9-16.9)
[2021-06-15] MEDS: Insulin LISPRO 300 UNITS/3 ML VIAL SUBQ SCH ×4 (07:42→21:44)
[2021-06-15] MEDS: Tiotropium 10 INH DOSE IH SCH (08:10)
[2021-06-15 09:06] LABS: Hemoglobin 16.7 g/dL (12.9-16.9)
[2021-06-15 09:20] LABS: BUN/Creatinine Ratio 55 (6-26); Blood Urea Nitrogen 69 mg/dL (8-23); Calcium 7.6 mg/dL (8.6-10.3); Carbon Dioxide 26 mEq/L (23-29); Chloride 101 mEq/L (98-107); Glucose 133 mg/dL (70-105); Osmolality,Calculated 302 (280-300); Sodium 135 mEq/L (136-145); eGFR For African Americans > 60 (> 60); eGFR For Non-African Americans 55 (> 60)
[2021-06-15] MEDS: Sennosides/Docusate Sodium TABLET PO SCH ×3 (09:24→21:35)
[2021-06-15] MEDS: Dexamethasone Sodium Phos/PF 10 MG/ML VIAL IVP SCH (09:24)
[2021-06-15] MEDS: Aspirin Enteric Coated 81 MG Tablet PO SCH (09:24)
[2021-06-15] MEDS: Pantoprazole 40 MG VIAL IVP SCH (09:24)
[2021-06-15] MEDS: Metoprolol 100 MG TABLET PO SCH ×3 (09:24→21:35)
[2021-06-15] MEDS: *HR* Amiodarone 200 MG TABLET PO SCH ×3 (09:24→21:34)
[2021-06-15] MEDS: 0.9 % Sodium Chloride 1,000 ML IVC SCH (11:40)
[2021-06-15] MEDS: Acetaminophen 325 MG TABLET PO PRN (13:40)
[2021-06-15] MEDS ORDERED: 0.9 % Sodium Chloride 500 ML IV ONE (14:23)
[2021-06-15] MEDS: Heparin 25,000 UNIT/250 ML 25,000 UNIT/250 ML IV.SOLN IVC SCH (15:00)
[2021-06-15 17:05] LABS: Basophils % 0.2 %; Hematocrit 47.9 % (37.5-50.1); Hemoglobin 15.6 g/dL (12.9-16.9); Mean Platelet Volume 9.8 fL (9.4-12.4)
[2021-06-15 17:07] LABS: Basophils # 0.1 K/mcL (0.0-0.2); Hematocrit 48.5 % (37.5-50.1); Hemoglobin 15.3 g/dL (12.9-16.9); Immature Granulocytes % 0.7 % (0-4); Lymphocytes # 0.2 K/mcL (0.6-4.6); Lymphocytes % 0.9 %; Mean Corpuscular HGB Conc 31.5 g/dL (31.6-35.5); Mean Corpuscular Hemoglobin 28.9 pg (28.0-33.3); Mean Corpuscular Volume 91.7 fL (83.0-100.0); Monocytes % 2.9 %; Neutrophils # 24.4 K/mcL (1.6-8.9); Platelet Count 452 K/mcL (140-400); Red Blood Count 5.29 M/mcL (4.19-5.50); Segmented Neutrophils % 95.3 %; White Blood Count 25.6 K/mcL (4.3-11.1)
[2021-06-15 17:14] LABS: Monocytes # 0.7 K/mcL (0.0-1.3)
[2021-06-15] MEDS: Insulin DETEMIR 100 UNIT/ML X5UNITS SUBQ SCH (21:44)
[2021-06-16 01:25] LABS: Mean Platelet Volume 9.9 fL (9.4-12.4); Platelet Count 435 K/mcL (140-400)
[2021-06-16 01:26] LABS: Basophils # 0.1 K/mcL (0.0-0.2); Basophils % 0.2 %; Hematocrit 46.4 % (37.5-50.1); Hemoglobin 14.9 g/dL (12.9-16.9); Immature Granulocytes % 0.9 % (0-4); Lymphocytes # 0.5 K/mcL (0.6-4.6); Lymphocytes % 1.5 %; Mean Corpuscular HGB Conc 32.1 g/dL (31.6-35.5); Mean Corpuscular Hemoglobin 29.7 pg (28.0-33.3); Mean Corpuscular Volume 92.4 fL (83.0-100.0); Monocytes # 1.4 K/mcL (0.0-1.3); Monocytes % 4.3 %; Red Blood Count 5.02 M/mcL (4.19-5.50); Segmented Neutrophils % 93.1 %
[2021-06-16 01:42] LABS: Neutrophils # 29.2 K/mcL (1.6-8.9); White Blood Count 31.4 K/mcL (4.3-11.1)
[2021-06-16 02:28] LABS: Calcium 7.3 mg/dL (8.6-10.3); Potassium 5.3 mEq/L (3.5-5.1)
[2021-06-16] MEDS: Amiodarone Premix 360 MG/200 ML BAG IVC SCH (04:48)
[2021-06-16 07:54] VITALS: PULSE 100; TEMP 96.2
[2021-06-16] MEDS: Metoprolol 100 MG TABLET PO SCH (08:02)
[2021-06-16] MEDS: Pantoprazole 40 MG VIAL IVP SCH (08:17)
[2021-06-16] MEDS: Dexamethasone Sodium Phos/PF 10 MG/ML VIAL IVP SCH (08:17)
[2021-06-16] MEDS: Aspirin Enteric Coated 81 MG Tablet PO SCH (08:18)
[2021-06-16] MEDS: Sennosides/Docusate Sodium TABLET PO SCH (08:19)
[2021-06-16] MEDS: Insulin LISPRO 300 UNITS/3 ML VIAL SUBQ SCH (08:20)
[2021-06-16] MEDS: Tiotropium 10 INH DOSE IH SCH (08:24)
[2021-06-16 08:26] VITALS: O2SAT 93
[2021-06-16] MEDS: *HR* Amiodarone 200 MG TABLET PO SCH (08:27)
[2021-06-16 09:40] VITALS: BP 67/43
[2021-06-16 10:29] LABS: Hematocrit 39.1 % (37.5-50.1)
[2021-06-16 10:41] LABS: Hemoglobin 12.2 g/dL (12.9-16.9)
== END 2021-06-16 12:44 | disposition expired | DRG 871 ==
LOC: 2NENU 14:52 → EMEROOARM 14:52 → 2NENU 22:20 → SUATTDRO 05-30 12:16
PROVIDERS: ADMIT Student in an Organized Health Care Education/Training Program; ATTEND Internal Medicine